=== PATIENT | female | born 1985 | race Caucasian/White ===

== ENCOUNTER 2022-10-18 18:21 | Emergency (ER) | payer OTHER, SELFPAY ==
[2022-10-18 18:23] VITALS: BP 116/69; PULSE 84; RESP 16; TEMP 36.3; O2SAT 99; BMI 23.7
--- NOTE | 2022-10-18 20:33 | EDS_ITS ---
HPI HPI - Female History of Present Illness Chief Complaint: Vag Bld, Preg Informant: patient and spouse/S.O. Narrative Narrative: 8-week gestation by ultrasound vaginal bleeding 3:30 PM. Was resting when symptoms occurred there is no clots. Intermittent cramping none currently. Talk to hematology oncology consultant earlier reported increasing cramping to go to the ED. She states that subsided. She confirmed intrauterine a week ago. No urinary symptoms. No cough. No vomiting diarrhea. On prenatals. Denies alcohol tobacco or illicit drug use. Denies any recent intercourse. Prior similar symptoms: No PFSH PFSH Allergy/AdvReac Type Severity Reaction Status Date / Time No Known Allergies Allergy Verified 10/18/22 18:26 Social History Smoking Status: Never smoker ROS ROS ED Constitutional Constitutional ED: Denies chills, fever(s) or sweats Eyes Eyes: Denies change in vision ENT ENT ED: Denies dysphagia or sore throat Cardiovascular Cardiovascular: Denies chest pain, leg edema, palpitations or racing heartbeat Respiratory/Chest Respiratory/Chest: Denies cough, dyspnea or dyspnea on exertion Gastrointestinal Gastrointestinal: Denies abdominal pain, diarrhea, nausea or vomiting Genitourinary Genitourinary ED: Reports other Details: Vaginal bleeding ; Denies dysuria, hematuria or urinary frequency Musculoskeletal Musculoskeletal: Denies back pain, extremity pain or neck pain Integumentary Denies rash or wounds Neurologic Neurologic: Denies headache(s), paresthesias or weakness EXAM Physical Exam Const Vital Signs: 10/18/22 18:23 Temperature 97.3 F L Temperature Source Temporal Pulse Rate 84 Respiratory Rate 16 Blood Pressure 116/69 Blood Pressure Mean 84 Pulse Ox 99 Oxygen Delivery Method Room Air Positive well nourished and well developed General Appearance ED: well developed and NAD HEENT Reports moist mucous membranes normocephalic and atraumatic Eyes PERRL, EOMs intact bilaterally and conjunctivae normal General Eye ED: Yes normal appearance of both eyes Neck no lymphadenopathy and supple General: Negative for tenderness Chest Wall Chest: Negative for tenderness Resp normal respiratory effort and normal air movement Effort and Inspection: symmetric chest movement; Negative for respiratory distress Cardio regular rate, regular rhythm and no murmurs Peripheral Pulses: pulses 2+ throughout GI normal to inspection, nondistended, normoactive bowel sounds and non-tender Palpation: Negative for guarding or rebound tenderness present Back/Spine no CVA tenderness and no thoracic nor lumbar tenderness Extremity normal to inspection General Extremety ED: Negative for edema or tenderness General Extremity: Negative for edema Neuro oriented x3 and no sensory deficits noted Sensorium / Orientation: awake and alert Skin no rashes or lesions noted and no wounds MDM MDM MDM Narrative Medical decision making narrative: Vital signs stable. Bedside ultrasound intrauterine heart tones 170. Check hCG ABO Rh and urine. Discussed threatened miscarriage. Rh+ Quant 92,000. Hemoglobin 12.2. Patient reassured pelvic rest. Monitoring symptoms. Outpatient follow-up as scheduled on Friday. Lab Data Attestation: I reviewed the patient's lab results. Labs: Laboratory Results - last 24 hr 10/18/22 10/18/22 10/18/22 19:58 19:58 19:58 WBC 6.2 RBC 3.85 L Hgb 12.2 Hct 34.2 L MCV 88.8 MCH 31.7 MCHC 35.7 RDW Std Deviation 41.0 RDW Coeff of Chung 12.6 Plt Count 321 MPV 10.2 Immature Gran % (Auto) 0.200 Neut % (Auto) 66.3 Lymph % (Auto) 25.0 [place] % (Auto) 7.1 Eos % (Auto) 1.1 Baso % (Auto) 0.3 Absolute Neuts (auto) 4.1 Absolute Lymphs (auto) 1.54 Nucleated RBC % 0 HCG, Quant 01123 H Urine Color Urine Clarity Urine pH Ur Specific Advance Urine Protein Urine Glucose (UA) Urine Ketones Urine Occult Blood Urine Nitrite Urine Bilirubin Urine Urobilinogen Ur Leukocyte Esterase Urine RBC Urine WBC Ur Squamous Epith Cells Urine Bacteria Urine Mucus Urine Test Blood Type B POSITIVE 10/18/22 20:36 WBC RBC Hgb Hct MCV MCH MCHC RDW Std Deviation RDW Coeff of Chung Plt Count MPV Immature Gran % (Auto) Neut % (Auto) Lymph % (Auto) [place] % (Auto) Eos % (Auto) Baso % (Auto) Absolute Neuts (auto) Absolute Lymphs (auto) Nucleated RBC % HCG, Quant Urine Color Yellow Urine Clarity Clear Urine pH 6.0 Ur Specific Advance 1.015 Urine Protein Negative Urine Glucose (UA) Normal Urine Ketones Negative Urine Occult Blood 250 H Urine Nitrite Negative Urine Bilirubin Negative Urine Urobilinogen Normal Ur Leukocyte Esterase Negative Urine RBC 5-10 SEEN Urine WBC 0 SEEN Ur Squamous Epith Cells 0-5 SEEN Urine Bacteria 0 SEEN Urine Mucus 0 SEEN Urine Test Positive H Blood Type Discharge Plan Triage Chief Complaint: Vag Bld, Preg ED Provider: Romaine Herrera Dx/Rx/DC Orders Clinical Impression: Threatened miscarriage, First trimester Instructions: 1st Trimester, ED Possible Miscarriage ... Primary Care Provider: Care Physician,No Primary Referrals: Care Physician,No Primary [Primary Care Provider] - Activity Restrictions/Additional Instructions: Your hCG level is 92 398. Hemoglobin 12.2. Blood type Rh+. Pelvic rest monitor symptoms keep your follow-up on Friday. Disposition Disposition: Home, Self Care Discharge Date/Time: 10/18/22 22:00
[2022-10-18 20:34] LABS: Absolute Lymphocyte Count 1.54 X10^3/uL (0.83-4.51); Absolute Neutrophil Count 4.1 X10^3/uL (2.0-7.7); Basophil# 0.02 X10^3/uL; Basophil% 0.3 % (0-1); Eosinophil# 0.07 X10^3/uL; Eosinophils% 1.1 % (0-5); Hematocrit 34.2 % (37-47); Hemoglobin 12.2 g/dL (12.0-15.0); Lymphocyte # 1.54 X10^3/ul (0.83-4.51); Mean Corp Hgb Conc 35.7 g/dL (32-36); Mean Corpuscular Hgb 31.7 pg (27.0-32.0); Mean Corpuscular Volume 88.8 fL (81-99); Mean Platelet Vol. 10.2 fl (6.2-12.0); Monocyte# 0.44 X10^3/uL; Monocyte% 7.1 % (0-10); NRBC Flagged by Analyzer 0 % (0-5); Neutrophil # 4.08 X10^3/uL (2.7-7.7); Neutrophil % 66.3 % (47-70); Platelet Count 321 K/mm3 (150-450); RBC Distribution Width CV 12.6 % (11.6-14.6); Red Blood Count 3.85 M/mm3 (4.2-5.4); White Blood Count 6.2 K/mm3 (4.4-11.0)
[2022-10-18 20:41] LABS: Bacteria 0 SEEN /hpf (None Seen); Mucous, Urine 0 SEEN /hpf (<or=2+); White Blood Cells 0 SEEN /hpf (0-5)
[2022-10-18 20:42] LABS: Color, Urine Yellow (Yellow); Glucose, Dipstick Normal (Normal); Ketone-Dipstick Negative (Negative); Leukocyte Esterase-Dipstick Negative /ul (Negative); Nitrite-Dipstick Negative (Negative); Occult Blood-Urine 250 /ul (Negative); Protein-Dipstick Negative (Negative); Specific Gravity, Urine 1.015 (1.002-1.030); Urine Bilirubin Dipstick Negative (Negative); Urine Clarity Clear (Clear); Urine Urobilinogen Normal (Normal)
[2022-10-18 20:44] LABS: Internal QC Validated? YES +Cl - CLEAR BKGD; Pregnancy, Urine Positive Negative
[2022-10-18 20:48] LABS: Red Blood Cells-Urine 5-10 SEEN /hpf (0-5); Squamous Epithelial Cells - UA 0-5 SEEN /hpf (5-10)
== END 2022-10-18 22:00 | disposition home or self-care (01) ==
PROVIDERS: Emergency Provider Emergency Medicine; Visit Provider Emergency Medicine
DX: O20.0 Threatened abortion (principal); O09.521 Supervision of elderly multigravida, first trimester; Z3A.00 Weeks of gestation of pregnancy not specified
CPT/HCPCS: 81001; 81025; 84702; 85025; 86900; 86901; 99283; A4216

== ENCOUNTER 2023-05-10 08:38 | Inpatient (IN) | payer OTHER, SELFPAY ==
[2023-05-10] VITALS (20 sets, daily range): BP systolic 89–129; BP diastolic 38–86; PULSE 59–90; RESP 14–18; TEMP 36.1–37.1; O2SAT 96–99; BMI 28.5
[2023-05-10] MEDS: Acetaminophen 500 MG Tablet 1000 MG PO ×3 (09:08→21:01)
[2023-05-10] MEDS: Lactated Ringers 1,000 ML 999 ML IV (09:09)
--- NOTE | 2023-05-10 09:11 | PCM.HP.OB ---
HPI - General General Date of Admission: 05/10/23 Date of Service: 05/10/23 HPI Narrative MYRNA MCALLISTER, is a 37 F @ 37.1 weeks who presents c/o contractions - BREECH. denies TIA BERRY. PFSH PFS Medical History (Updated 05/10/23 @ 09:[address] Apolonia Zurita MD) Depression depression Uterine anomaly Allergy/AdvReac Type Severity Reaction Status Date / Time No Known Allergies Allergy Verified 10/18/22 18:26 Surgical History (Updated 05/10/23 @ 09:[address] Apolonia Zurita MD) History of surgery Previous section Social History Smoking Status: Never smoker History Elective abortions Hx Para 1 Spontaneous abortions Hx # Term Pregnancies Ectopic pregnancies Hx # Pregnancies Multiple births # of living children NST FHR Rate Baby A Baseline: 140 Variability:: Moderate Accelerations:: 15 x 15 Decelerations:: None NST Reactive:: Yes FHR Category:: Category I Uterine Activity:: q2-9 min Vital Signs Vital Signs Vital Signs: 05/10/23 06:22 05/10/23 06:22 05/10/23 06:22 Temperature Temperature Source Pulse Rate 90 Blood Pressure 129/86 H 129/86 H BP Systolic 129 129 BP Diastolic 86 86 05/10/23 06:22 05/10/23 06:22 05/10/23 06:22 Temperature Temperature Source Temporal Temporal Pulse Rate 90 Blood Pressure BP Systolic BP Diastolic 05/10/23 06:22 05/10/23 06:22 05/10/23 09:00 Temperature 97.1 F L 97.1 F L Temperature Source Pulse Rate Blood Pressure 119/59 L BP Systolic 119 BP Diastolic 59 05/10/23 09:00 05/10/23 09:00 05/10/23 09:00 Temperature Temperature Source Pulse Rate 75 75 Blood Pressure 119/59 L BP Systolic 119 BP Diastolic 59 Weight Weight: 86.6 kg Body Mass Index (BMI) 28.5 Physical Exam Narrative VE: 3-4/60-70/-3 per nursing Labs Labs Labs: Blood Type B POSITIVE Hct 34.2 % (37-47) L Hgb 12.2 g/dL (12.0-15.0) Assessment & Plan (1) 37 weeks gestation of : (2) Previous delivery affecting : (3) malpresentation: QUALIFIERS: malpresentation type: breech Fetus number: single or unspecified fetus Qualified Code(s): O32.1XX0 - Maternal care for breech presentation, not applicable or unspecified PLAN: Plan Admit to L&D [facility] FHR/TOCO OR TEAM NOTIFIED Monitor VS CS planned for breech and repeat Ancef 2g pre op
[2023-05-10 09:28] LABS: Absolute Lymphocyte Count 0.93 X10^3/uL (0.83-4.51); Absolute Neutrophil Count 11.5 X10^3/uL (2.0-7.7); Basophil# 0.02 X10^3/uL; Basophil% 0.2 % (0-1); Hematocrit 30.7 % (37-47); Hemoglobin 9.7 g/dL (12.0-15.0); Lymphocyte # 0.93 X10^3/ul (0.83-4.51); Lymphocyte % 7.3 % (19-41); Mean Corp Hgb Conc 31.6 g/dL (32-36); Mean Corpuscular Hgb 26.3 pg (27.0-32.0); Mean Corpuscular Volume 83.2 fL (81-99); Mean Platelet Vol. 9.7 fl (6.2-12.0); Monocyte# 0.27 X10^3/uL; Monocyte% 2.1 % (0-10); NRBC Flagged by Analyzer 0 % (0-5); Neutrophil # 11.45 X10^3/uL (2.7-7.7); Neutrophil % 89.8 % (47-70); Platelet Count 336 K/mm3 (150-450); RBC Distribution Width CV 13.6 % (11.6-14.6); RBC Distribution Width SD 41.2 fl (35.1-43.9); Red Blood Count 3.69 M/mm3 (4.2-5.4); White Blood Count 12.8 K/mm3 (4.4-11.0)
[2023-05-10] MEDS: Sodium Citrate/Citric Acid 30 ML UDC PO (09:42)
[2023-05-10] MEDS: Cefazolin 2 GM in 0.9% Normal Saline 100 ML IV (10:07)
[2023-05-10 10:26] LABS: Syphilis Antibodies Non-reactive
--- NOTE | 2023-05-10 10:42 | OP.PCM_ITS ---
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 She was then placed in the supine position. She was prepped and draped in the normal sterile fashion. Anesthesia was found to be adequate. At this time a Pfannenstiel skin incision was made with a knife was carried down to the underlying layer of the fascia. The fascial incision was then extended laterally using curved Ventura scissor. attention was then turned to the superior aspect of the fascial edge was grasped with 2 straight [place] clamps tented up and the rectus muscle dissected off sharply using curved Ventura scissor. Rectus muscles were then in the midline bluntly and peritoneum was entered bluntly. Gentle opposing traction was placed. At this time the vesicouterine peritoneum was identified. Bladder was adherent high on uterus- taken down with Metzenbaum. Scalpel was used to make a uterine incision in a low transverse fashion. The uterus was then entered bluntly gentle opposing traction was placed to extend this incision. Membranes were ruptured clear. Infant's buttocks was brought to the uterine incision was delivered atraumatically followed by legs, arms and head was flexed to be delivered atraumatically. Loose nuchal x 1 noted. Mouth and nose suctioned. Cord was clamped and cut infant was handed to the waiting nursery team. The Placenta w as removed from the uterus. The uterus remained in the abdominal cavity- bicornuate uterus appreciated. The uterus was cleared of all clots and debris using a lap. At this time the uterine incision was reapproximated using #1 Vicryl in a running locked fashion. Hemostasis was appreciated. Posterior cul-de-sac was then cleared of all clots and debris. Gutters were cleared of all clots and debris. Uterine incision was reevaluated and noted to be of excellent hemostasis. At this time the peritoneum and muscle was grasped with Kellys reapproximated using #2 Vicryl suture in a running fashion. Fascia was then reapproximated using #1 Vicryl in a running fashion. Subcu layer was irrigated and reapproximated with #2 0 plain gut suture in an interrupted fashion. Subcu layer was closed using 4-0 Monocryl in a subcu fashion. Dry sterile dressing was applied. Instrument lap needle count correct ?2. Anticipated normal postoperative course. Presentation: Positive for Complete Breech Amniotic Membrane Rupture Type: Artificial Amniotic Fluid Description: Clear Placental Delivery Description: Expressed Placenta Disposition: [facility] Cord Vessel Description: 3 Vessels Cord Entanglement: Around neck x 1, loose Infant A Gender: Male (1 minute): 8 (5 minute): 9 Delayed Cord Clamping: No Complications Risks of Surgery Discussed w/Patient: Bleeding, Anesthesia Risks, Infection, Need for Future C-Sections and Injury to surrounding structure(s) including bowel and bladder Complications: none
[2023-05-10] MEDS: Oxytocin 15 Units/NS 250ml 15 UNITS/250 ML IV.SOLN 83 UNITS IV (11:00)
[2023-05-10] MEDS: Ketorolac 30 MG/ML Syringe IV ×3 (11:39→23:57)
[2023-05-10] MEDS: Lactated Ringers 1,000 ML 100 ML IV (13:55)
[2023-05-10] MEDS: 0.9% Saline Lock 10 ML Syringe IV ×2 (18:11→23:57)
[2023-05-11] MEDS: Acetaminophen 500 MG Tablet 1000 MG PO ×2 (02:59→10:06)
[2023-05-11 03:00] VITALS: BP 98/60; PULSE 71; RESP 16; TEMP 36.9; O2SAT 96
[2023-05-11] MEDS: Ketorolac 30 MG/ML Syringe IV (06:03)
[2023-05-11] MEDS: 0.9% Saline Lock 10 ML Syringe IV (06:04)
[2023-05-11 06:29] LABS: Hematocrit 30.3 % (37-47); Hemoglobin 9.4 g/dL (12.0-15.0); Mean Corpuscular Hgb 26.3 pg (27.0-32.0); Mean Corpuscular Volume 84.6 fL (81-99); Mean Platelet Vol. 9.9 fl (6.2-12.0); Platelet Count 307 K/mm3 (150-450); RBC Distribution Width CV 13.6 % (11.6-14.6); RBC Distribution Width SD 41.8 fl (35.1-43.9); Red Blood Count 3.58 M/mm3 (4.2-5.4); White Blood Count 11.8 K/mm3 (4.4-11.0)
--- NOTE | 2023-05-11 07:29 | PN_ITS ---
Subjective Subjective patient seen at bedside, doing well. Patient reports good pain control. lochia mild. Objective Data Objective Data Vital Signs: Vital Signs Temp Pulse Resp BP Pulse Ox O2 Del Method 98.4 F 71 16 98/60 96 Room Air 05/11/23 03:00 05/11/23 03:00 05/11/23 03:00 05/11/23 03:00 05/11/23 03:00 05/11/23 03:00 Oxygen Delivery Method Room Air Weight: 86.6 kg Body Mass Index (BMI) 28.5 Intake & Output: Intake and Output for Last 24 Hours 05/09/23 05/10/23 05/11/23 23:59 23:59 23:59 Intake Total 1966.80 / 1966.80 Output Total 1900 / 2250 350 / 350 Balance 66.80 / -283.20 -350 / -350 Lab / Micro Data 05/11/23 06:00 Labs: Laboratory Results - last 24 hr 05/10/23 09:15: WBC 12.8 H, RBC 3.69 L, Hgb 9.7 L, Hct 30.7 L, MCV 83.2, MCH 26.3 L, MCHC 31.6 L, RDW Std Deviation 41.2, RDW Coeff of Chung 13.6, Plt Count 336, MPV 9.7, Immature Gran % (Auto) 0.600, Neut % (Auto) 89.8 H, Lymph % (Auto) 7.3 L, [place] % (Auto) 2.1, Eos % (Auto) 0.0, Baso % (Auto) 0.2, Absolute Neuts (auto) 11.5 H, Absolute Lymphs (auto) 0.93, Nucleated RBC % 0, Syphilis Total Ab Non-reactive, Blood Type B POSITIVE, Antibody Screen NEGATIVE 05/11/23 06:00: WBC 11.8 H, RBC 3.58 L, Hgb 9.4 L, Hct 30.3 L, MCV 84.6, MCH 26.3 L, MCHC 31.0 L, RDW Std Deviation 41.8, RDW Coeff of Chung 13.6, Plt Count 307, MPV 9.9 Physical Exam Const alert and oriented x3 General Appearance: cooperative HEENT normocephalic Neck General: normal visual inspection GI soft to palpation and non-distended GI Narrative: Fundus firm Extremity normal to inspection and no calf tenderness Skin no rashes or lesions noted Neuro oriented x3 and CN's II-XII intact bilaterally Psych mental status grossly normal Assessment & Plan Assessment/Plan (1) Delivery by section: PLAN: Plan POD#1 , Doing well Routine care pain mgmt monitor VS ambulation pt requesting dc home today
--- NOTE | 2023-05-11 07:30 | DCINST_ITS ---
Discharge Instructions Diet Discharge Diet: No restrictions Activity May resume sexual activity in: 6-8 weeks Lifting Restrictions: 25 Dressing / Incision Call your doctor if your incision/area has: Continuous Slow Oozing, Sudden Increased Bleeding, Increased Pain/ Swelling, Increased Redness, Foul Smelling Discharge and Swelling at the incision site Call your doctor if you observe: Fever of 101 or Higher, Inability to urinate, Using more than 1 pad per hour and Uncontrolled pain Additional Dressing/Incision Instructions:: remove dressing at 7 days post op- if it becomes saturated prior to that time you may remove it. Let soap and water run over incision sites and dab dry. keep incision clean and dry. Follow Up Care Please Follow Up With: Apolonia Zurita MD When: 1-2 weeks post of incision check and again at 6 weeks post . [phone] Test Results: Test results from this visit will be discussed in further detail at your follow- up appointment, if applicable. Discharge Plan Admission Admit Date/Time: 05/10/23 08:38 Attending Provider: Apolonia Zurita Primary Care Provider: Care PhysicianKay Primary Discharge Orders/Prescriptions Prescriptions: New acetaminophen 500 mg Tablet 1,000 mg PO Q6H Qty: 0 0RF ibuprofen 600 mg Tablet 600 mg PO Q6H Qty: 0 0RF Referrals / Follow Up: Care PhysicianKay Primary [Primary Care Provider] - Disposition Disposition (needs filled in before D/C Order can be placed): Home, Self Care
--- NOTE | 2023-05-11 07:33 | PCM.DC.BLA ---
Discharge Summary Date of Admission: 05/10/23 Date of Discharge: 05/11/23 Summary: Admitted to [facility] on 05/10/2023 complaining of contractions patient had a previous section fetus was in the breech presentation. Patient was found to make cervical change and was 4 cm complaining of painful contractions. She underwent a repeat low transverse section and delivered a live male . She had an uncomplicated postoperative course. Patient requested to be discharged home on postoperative day 1 on 05/11/2023 in stable condition. Meaningful Use Info Meaningful Use Diagnoses (Choose all that apply): None applicable Discharge Plan Admission Admit Date/Time: 05/10/23 08:38 Attending Provider: Apolonia Zurita Primary Care Provider: Care Physician,Kay Primary Discharge Orders/Prescriptions Prescriptions: New acetaminophen 500 mg Tablet 1,000 mg PO Q6H Qty: 0 0RF ibuprofen 600 mg Tablet 600 mg PO Q6H Qty: 0 0RF Referrals / Follow Up: Care Physician,No Primary [Primary Care Provider] - Disposition Disposition (needs filled in before D/C Order can be placed): Home, Self Care
[2023-05-11 08:05] VITALS: BP 103/66; PULSE 71; RESP 16; TEMP 36.6; O2SAT 96
[2023-05-11] MEDS: Senna/Docusate Sodium 1 Tablet PO (10:07)
[2023-05-11] MEDS: Ibuprofen 600 MG Tablet PO (10:07)
[2023-05-11 13:39] VITALS: BP 112/73; PULSE 84; RESP 16; TEMP 36.6
== END 2023-05-11 14:00 | disposition home or self-care (01) | DRG 788 ==
LOC: WPOUT 08:43 → WP 08:43
PROVIDERS: Admitting Provider Obstetrics & Gynecology; Visit Provider Obstetrics & Gynecology
DX: O32.1XX0 Maternal care for breech presentation, not applicable or unspecified (principal); O34.03 Maternal care for unspecified congenital malformation of uterus, third trimester; O34.211 Maternal care for low transverse scar from previous cesarean delivery; O69.81X0 Labor and delivery complicated by cord around neck, without compression, not applicable or unspecified; Z37.0 Single live birth; Z3A.37 37 weeks gestation of pregnancy; Q51.3 Bicornate uterus
CPT/HCPCS: 59025; 59050; 85025; 85027; 86780; 86850; 86900; 86901; 99221; J7120; A4216; G0378; J2405

== ENCOUNTER → 2023-10-23 | Outpatient (CLI) | payer OTHER, SELFPAY ==
--- NOTE | 2023-10-23 | MASS_PTH ---
PATIENT: MYRNA MCALLISTER LOC: [facility] U#:[id number] AGE/SX: 38/F ROOM: RE10/23/[address]: Dr. Yovany Montgomery MD : 1985 BED: DIS: 10/23/2023 SPEC #: [id number] RECD: 10/24/23 10:07 STATUS: NAVYA DELORES #: [id number] OPAL: 10/23/23 00:[address]: Yovany Montgomery DEPT: SURGICAL PATHOLOGY RECD BY: Vicky Stephens ENTERED: 10/24/23 10:08 SP TYPE: Mass OTHR DR: No Primary Care Phys [facility] Tissues: Tongue, NOS Procedures: Surgery Specimen Level IV HEADER OPERATION: Right excision tongue mass PRE-OP DIAGNOSIS: Neoplasm of tongue TISSUE SUBMITTED: Tongue lesion MICROSCOPIC DIAGNOSIS Tongue lesion, excision: Squamous papilloma. See comment. MIGUEL:ana m 10/28/2023 COMMENT Superficial bacterial colonization is also noted. MICROSCOPIC DESCRIPTION Slides are reviewed. GROSS DESCRIPTION Received in fixative is one container labeled with the patient's name and designated tongue lesion. The specimen consists of a piece of dailey mucosal tissue measuring 0.2 x 0.2 x 0.1 cm. The specimen is totally submitted in one cassette. / SJ:rg 10/24/2023 TC:1 CPT: 53564
== END | disposition home or self-care (01) ==
LOC: LABSPEC 10-24 10:06
PROVIDERS: Visit Provider Otolaryngology
DX: D10.1 Benign neoplasm of tongue (principal)
CPT/HCPCS: 88305